=== PATIENT | female | born 1960 | race Caucasian/White ===

== ENCOUNTER → 2016-12-14 | Outpatient (CLI) | payer MEDICARE, BC ==
[~2016-12-14] MED LIST: CELE20TA PO; CHOL50006 PO; ESTR1 PO; FOLI1TAB PO; KLOR20TA6 PO; LEVO112T2 PO; LIOT25 PO; LOPE2TAB3 PO; PERC10TA27 PO; PERC5TAB12 PO; SLOWTAB PO
[2016-12-14 10:21] LABS: AUTOMATED NEUTROPHIL # 4.3 TH/MM3 (1.8-7.7); BASOPHIL # 0.1 TH/MM3 (0-0.2); BASOPHIL % 1.7 % (0.0-2.0); EOSINOPHIL # 0.6 TH/MM3 (0-0.4); HEMATOCRIT 37.6 % (35.0-46.0); HEMO FLAGS DIFF FINAL; LYMPH % 28.6 % (9.0-44.0); LYMPHOCYTE # 2.2 TH/MM3 (1.0-4.8); MEAN CELL VOLUME 89.2 FL (80.0-100.0); MEAN CORPUSCULAR HEMOGLOBIN 30.1 PG (27.0-34.0); MEAN CORPUSCULAR HGB CONC 33.8 % (32.0-36.0); MONO % 5.9 % (0.0-8.0); NEUT % 55.8 % (16.0-70.0); PLATELET COUNT 211 TH/MM3 (150-450); RED BLOOD COUNT 4.21 MIL/MM3 (4.00-5.30); RED CELL DISTRIBUTION WIDTH 13.4 % (11.6-17.2); WHITE BLOOD COUNT 7.7 TH/MM3 (4.0-11.0)
[2016-12-14 10:52] LABS: WESTERGREN SEDIMENTATION RATE 2 mm/hr (0-30)
[2016-12-14 10:56] LABS: ALT (GPT) 19 U/L (10-53); ANION GAP 7 MEQ/L (5-15); AST (GOT) 18 U/L (15-37); BICARBONATE 22.9 MEQ/L (21.0-32.0); BLOOD UREA NITROGEN 13 MG/DL (7-18); CHLORIDE 110 MEQ/L (98-107); GLOMERULAR FILTRATION RATE 53 ML/MIN (>89); GLUCOSE,FASTING 78 MG/DL (74-99); SODIUM (NA) 140 MEQ/L (136-145)
[2016-12-14 10:57] LABS: RHEUMATOID FACTOR TRIGGER LESS THAN 10.0 IU/ML (0.0-14.9)
[2016-12-14 11:05] LABS: ALKALINE PHOSPHATASE 100 U/L (45-117); TOTAL BILIRUBIN ADULT 0.4 MG/DL (0.2-1.0); URIC ACID 3.7 MG/DL (2.6-6.0)
[2016-12-14 11:14] LABS: CREATINE KINASE 49 U/L (26-192)
[2016-12-14 11:15] LABS: POTASSIUM 2.8 MEQ/L (3.5-5.1)
[2016-12-14 11:19] LABS: FREE T3 2.46 PG/ML (2.18-3.98); FREE T4 1.3 NG/DL (0.76-1.46)
[2016-12-16 11:51] LABS: RHEUMATOID FACTOR 7 IU/mL (<14)
[2016-12-16 15:53] LABS: MYELOPEROXIDASE LESS THAN 1.0 AI (<1.0); PROTEINASE-3 LESS THAN 1.0 AI (<1.0)
[2016-12-16 23:55] LABS: ANA IFA TITER ND titer (()); ANA SER QL NEGATIVE (NEGATIVE); SJOGRENS AB SSA <1.0 NEG AI (<1.0 NEGATIVE); SJOGRENS AB SSB <1.0 NEG AI (<1.0 NEGATIVE); THYROGLOB ABS 6 IU/mL (< OR = 1)
[2016-12-17 03:51] LABS: DS DNA AB(CRITHIDIA) NEGATIVE (NEGATIVE); DS DNA AB(CRITHIDIA)TITER ND (<1:10)
== END ==
LOC: CLAB 09:35
PROVIDERS: ATTEND Internal Medicine Endocrinology, Diabetes & Metabolism
DX: M07.60 Enteropathic arthropathies, unspecified site (principal); E06.3 Autoimmune thyroiditis; E03.9 Hypothyroidism, unspecified; I10 Essential (primary) hypertension
CPT/HCPCS: 36415; 80053; 82550; 82607; 82652; 83516; 84439; 84443; 84481; 84550; 85025; 85652; 86021; 86038; 86140; 86147; 86200; 86235; 86255; 86256; 86376; 86430; 86431; 86800

== ENCOUNTER 2017-03-02 12:21 | Emergency (ER) | payer MEDICARE, BC ==
[~2017-03-02] VITALS: Ht 157.5 cm; Wt 51.5 kg
[2017-03-02 12:24] VITALS: BP 128/87; PULSE 81; RESP 18; TEMP 98.7; O2SAT 97
[2017-03-02 16:40] VITALS: BP 140/81; PULSE 54; PULSE 57; RESP 16; O2SAT 100
--- NOTE | 2017-03-02 16:46 | PD ---
HPI Chief Complaint: Abnormal Results Time Seen by Provider: 16:32 Travel History International Travel<30 days: No Contact w/Intl Traveler<30days: No Traveled to known affect area: No History of Present Illness HPI Patient is a 51-year-old female presented to the emergency department for evaluation of a low potassium level. Patient states her primary care provider called her to let her know that her potassium level was low. Patient states she has a history of the same secondary to Crohn's disease and chronic diarrhea. Patient states that she has been dizzy and feeling off balance. She has no other complaints at this time. PFSH Past Medical History Arthritis: Yes (NECK) Asthma: Yes (MILD) Blood Disorders: No Anxiety: No Depression: Yes Heart Rhythm Problems: No Cancer: No Cardiovascular Problems: No Chemotherapy: No Chest Pain: No Congestive Heart Failure: No Diabetes: No Diminished Hearing: No Gastrointestinal Disorders: Yes (CROHN'S, GERD) GERD: Yes Genitourinary: No Hepatitis: No Hiatal Hernia: Yes Hypertension: No Implanted Vascular Access Dvce: No Musculoskeletal: Yes (degenerative disc disease) Neurologic: No Reproductive: No Immunizations Current: No Migraines: Yes Radiation Therapy: No Thyroid Disease: Yes (HYPOTHYROID) Menopausal: Yes Ectopic : Yes Past Surgical History Abdominal Surgery: Yes (APPENDECTOMY, BOWEL RESECT (X3)/ CHOLECYSTECTOMY, LYSIS ADHES.) AICD: No Appendectomy: Yes Body Medical Devices: LUMBAR HARDWARE, ADILENE. BREAST IMPLANTS Cholecystectomy: Yes Gynecologic Surgery: Yes (ECTOPIC PREG.) Hysterectomy: Yes (06/13/2015) Joint Replacement: No Neurologic Surgery: Yes (LUMBAR DISCECTOMY, LUMBAR FUSION) Pacemaker: No Other Surgery: Yes (LUMBAR FUSION APPEND.CHOLESTECTOMY COLON RESECTION TIMES 2 ADHESIONS) Social History Alcohol Use: Yes (RARE) Tobacco Use: No (quit 28 yrs ago) Substance Use: No Allergies-Medications (Allergen,Severity, Reaction): Coded Allergies: atropine (Unverified Allergy, Severe, TONGUE SWELLS, CAN'T BREATH, 02/23/17 ) PT STATES THAT ATROPINE WAS GIVEN WITH [place] DOES NOT BELIEVE THAT IS ALLERGIC TO ATROPINE cefepime (Unverified Allergy, Severe, TONGUE SWELLS, CAN'T BREATH, 02/23/17 ) ceftaroline fosamil (Unverified Allergy, Severe, TONGUE SWELLS, CAN'T BREATH, 02/23/17) nalbuphine (Unverified Allergy, Severe, Shortness of Breath, 02/23/17) Reported Meds & Prescriptions Reported Meds & Active Scripts Active Review of Systems Except as stated in HPI: all other systems reviewed are Neg HENT: No: Headaches Cardiovascular: No: Chest Pain or Discomfort Respiratory: No: Shortness of Breath Gastrointestinal: Positive: Nausea, No: Vomiting, Abdominal Pain Musculoskeletal: No: Myalgias Neurologic: Positive: Dizziness (occasionally), No: Weakness, Syncope, Change in Mentation Physical Exam Narrative GENERAL: Thin, well-developed, alert female. Resting comfortably in no acute distress. SKIN: Warm and dry. HEAD: Atraumatic. Normocephalic. EYES: Pupils equal and round. No scleral icterus. No injection or drainage. ENT: No nasal bleeding or discharge. Mucous membranes pink and moist. NECK: Trachea midline. No JVD. CARDIOVASCULAR: Regular rate and rhythm. RESPIRATORY: No accessory muscle use. Clear to auscultation. Breath sounds equal bilaterally. GASTROINTESTINAL: Abdomen soft, non-tender, nondistended. Hepatic and splenic margins not palpable. MUSCULOSKELETAL: Extremities without clubbing, cyanosis, or edema. No obvious deformities. NEUROLOGICAL: Awake and alert. No obvious cranial nerve deficits. Motor grossly within normal limits. Five out of 5 muscle strength in the arms and legs. Normal speech. PSYCHIATRIC: Appropriate mood and affect; insight and judgment normal. Data Data Last Documented VS Vital Signs Date Time Temp Pulse Resp B/P (MAP) Pulse Ox O2 Delivery O2 Flow Rate FiO2 03/02/17 16:40 57 16 140/81 (100) 100 Room Air 03/02/17 12:24 98.7 Orders Orders Comprehensive Metabolic Panel (03/02/17 16:37) Magnesium (Mg) (03/02/17 16:37) Electrocardiogram (03/02/17 ) Complete Blood Count With Diff (03/02/17 16:37) Iv Access Insert/Monitor (03/02/17 16:37) Ecg Monitoring (03/02/17 16:37) Oximetry (03/02/17 16:37) Vital Signs (03/02/17 16:37) Ondansetron Inj (Zofran Inj) (03/02/17 17:45) Potassium Chloride (Kcl) (03/02/17 18:30) Labs Laboratory Tests Test 03/02/17 16:50 White Blood Count 8.1 TH/MM3 Red Blood Count 4.24 MIL/MM3 Hemoglobin 12.8 GM/DL Hematocrit 39.4 % Mean Corpuscular Volume 92.9 FL Mean Corpuscular Hemoglobin 30.3 PG Mean Corpuscular Hemoglobin Concent 32.6 % Red Cell Distribution Width 13.5 % Platelet Count 221 TH/MM3 Mean Platelet Volume 8.3 FL Neutrophils (%) (Auto) 47.8 % Lymphocytes (%) (Auto) 30.0 % Monocytes (%) (Auto) 7.0 % Eosinophils (%) (Auto) 11.4 % Basophils (%) (Auto) 3.8 % Neutrophils # (Auto) 3.9 TH/MM3 Lymphocytes # (Auto) 2.4 TH/MM3 Monocytes # (Auto) 0.6 TH/MM3 Eosinophils # (Auto) 0.9 TH/MM3 Basophils # (Auto) 0.3 TH/MM3 CBC Comment DIFF FINAL Differential Comment Blood Urea Nitrogen 14 MG/DL Creatinine 1.22 MG/DL Random Glucose 79 MG/DL Total Protein 7.5 GM/DL Albumin 3.6 GM/DL Calcium Level 8.6 MG/DL Magnesium Level 1.6 MG/DL Alkaline Phosphatase 96 U/L Aspartate Amino Transf (AST/SGOT) 17 U/L Alanine Aminotransferase (ALT/SGPT) 19 U/L Total Bilirubin 0.3 MG/DL Sodium Level 139 MEQ/L Potassium Level 3.1 MEQ/L Chloride Level 105 MEQ/L Carbon Dioxide Level 23.5 MEQ/L Anion Gap 11 MEQ/L Estimat Glomerular Filtration Rate 46 ML/MIN [facility] Medical Decision Making Medical Screen Exam Complete: Yes Emergency Medical Condition: Yes Interpretation(s) Vital Signs Date Time Temp Pulse Resp B/P (MAP) Pulse Ox O2 Delivery O2 Flow Rate FiO2 03/02/17 16:40 100 Room Air 03/02/17 12:24 98.7 81 18 128/87 (101) 97 Room Air Differential Diagnosis Hypokalemia vs cardiac arrhythmia versus other Narrative Course Patient's 56-year-old female that presented to the emergency for evaluation of abnormal labs. Patient's vital signs are stable, she is well-appearing in no acute distress. Labs ordered and pending. EKG shows sinus bradycardia with a rate of 56. CBC is unremarkable, chemistry with a potassium of 3.1. Oral potassium replacement ordered. Patient will be discharged home, she was encouraged to eat foods high in potassium she is encouraged to return to emergency department any worsening symptoms or patient verbalized understanding of instructions. Patient stable for discharge. Diagnosis Primary Impression: Hypokalemia Referrals: Primary Care Physician 2 days Patient Instructions: General Instructions, Hypokalemia (ED), Potassium Content of Foods List (ED) Additional Instructions: Follow-up with your primary doctor Eat foods high in potassium Return to emergency department for any new or worsening symptoms Med/Other Pt SpecificInfo: Prescription(s) given Scripts Potassium Chloride ER (Potassium Chloride ER) 10 Meq Cap 10 MEQ PO DAILY for Electrolyte Replacement for 7 Days, #30 CAP 0 Refills Prov: Florinda Ledesma 03/02/17 Disposition: 01 DISCHARGE HOME Condition: Stable Florinda Ledesma Mar 02, 2017 16:46
[2017-03-02 17:28] LABS: AUTOMATED NEUTROPHIL # 3.9 TH/MM3 (1.8-7.7); BASOPHIL # 0.3 TH/MM3 (0-0.2); BASOPHIL % 3.8 % (0.0-2.0); EOSINOPHIL # 0.9 TH/MM3 (0-0.4); EOSINOPHIL % 11.4 % (0.0-4.0); HEMATOCRIT 39.4 % (35.0-46.0); HEMO FLAGS DIFF FINAL; LYMPHOCYTE # 2.4 TH/MM3 (1.0-4.8); MEAN CELL VOLUME 92.9 FL (80.0-100.0); MEAN CORPUSCULAR HEMOGLOBIN 30.3 PG (27.0-34.0); MEAN CORPUSCULAR HGB CONC 32.6 % (32.0-36.0); NEUT % 47.8 % (16.0-70.0); PLATELET COUNT 221 TH/MM3 (150-450); RED BLOOD COUNT 4.24 MIL/MM3 (4.00-5.30); RED CELL DISTRIBUTION WIDTH 13.5 % (11.6-17.2); WHITE BLOOD COUNT 8.1 TH/MM3 (4.0-11.0)
[2017-03-02 17:30] VITALS: BP 112/63; PULSE 75; RESP 16; O2SAT 100
[2017-03-02] MEDS ORDERED: ONDANSETRON HCL 4 MG/2 ML VIAL IV PUSH ONE (17:45)
[2017-03-02 17:53] LABS: ALKALINE PHOSPHATASE 96 U/L (45-117); TOTAL BILIRUBIN ADULT 0.3 MG/DL (0.2-1.0)
[2017-03-02 18:12] LABS: ALT (GPT) 19 U/L (10-53); ANION GAP 11 MEQ/L (5-15); AST (GOT) 17 U/L (15-37); BICARBONATE 23.5 MEQ/L (21.0-32.0); BLOOD UREA NITROGEN 14 MG/DL (7-18); CHLORIDE 105 MEQ/L (98-107); GLOMERULAR FILTRATION RATE 46 ML/MIN (>89); MAGNESIUM 1.6 MG/DL (1.5-2.5); POTASSIUM 3.1 MEQ/L (3.5-5.1); SODIUM (NA) 139 MEQ/L (136-145)
[2017-03-02] MEDS ORDERED: POTA10CA PO (18:29)
[2017-03-02] MEDS ORDERED: POTASSIUM CHLORIDE 10 MEQ CONTROLLED RELEASE TAB PO ONE (18:30)
[2017-03-02 18:53] VITALS: BP 128/65
--- NOTE | 2017-03-03 19:53 | EKG ---
Date Performed: 03/02/2017 Time Performed: 16:56:31 PTAGE: 56 years EKG: SINUS BRADYCARDIA BORDERLINE ECG PREVIOUS TRACING : 06/24/2015 01.44 Compared to the previous tracing rate slower DOCTOR: Moo Cox Interpretating Date/Time 03/03/2017 19:52:06
== END 2017-03-02 18:54 | disposition home or self-care (01) ==
LOC: NEPD 12:21
DX: E87.6 Hypokalemia (principal); E03.9 Hypothyroidism, unspecified; K21.9 Gastro-esophageal reflux disease without esophagitis; K50.90 Crohn's disease, unspecified, without complications
CPT/HCPCS: 80053; 83735; 85025; 93005; 96374; 99284; J2405

== ENCOUNTER → 2017-04-22 | Outpatient (CLI) | payer MEDICARE, BC ==
[~2017-04-22] MED LIST changes: -CELE20TA PO; -CHOL50006 PO; -ESTR1 PO; -FOLI1TAB PO; -KLOR20TA6 PO; -LEVO112T2 PO; -LIOT25 PO; -LOPE2TAB3 PO; -PERC10TA27 PO; -PERC5TAB12 PO; +POTA10CA PO; -SLOWTAB PO
[2017-04-22 11:49] LABS: FREE T3 3.08 PG/ML (2.18-3.98); FREE T4 1.35 NG/DL (0.76-1.46)
== END ==
LOC: CLAB 10:21
PROVIDERS: ATTEND Internal Medicine Endocrinology, Diabetes & Metabolism
DX: E03.9 Hypothyroidism, unspecified (principal); E55.9 Vitamin D deficiency, unspecified
CPT/HCPCS: 36415; 82306; 84439; 84443; 84481

== ENCOUNTER → 2017-10-25 | Outpatient (CLI) | payer MEDICARE, BC ==
[2017-10-25 10:19] LABS: BACTERIA, URINE RARE /hpf; BILIRUBIN, URINE NEG (NEG); BLOOD, URINE NEG (NEG); GLUCOSE,URINE NEG (NEG); KETONE, URINE NEG (NEG); NITRITE,URINE NEG (NEG); PH, URINE 5.5 (5.0-8.5); SQUAMOUS EPITHELIAL CELL URINE 8 /hpf (0-5); URINE COLOR YELLOW (YELLW/STRAW); URINE LEUKOCYTE ESTERASE LARGE (NEG)
[2017-10-25 10:20] LABS: AUTOMATED NEUTROPHIL # 5.6 TH/MM3 (1.8-7.7); BASOPHIL # 0.1 TH/MM3 (0-0.2); BASOPHIL % 1.4 % (0.0-2.0); EOSINOPHIL # 0.8 TH/MM3 (0-0.4); EOSINOPHIL % 8.7 % (0.0-4.0); HEMATOCRIT 37.6 % (35.0-46.0); HEMOGLOBIN 12.6 GM/DL (11.6-15.3); LYMPH % 19.7 % (9.0-44.0); LYMPHOCYTE # 1.7 TH/MM3 (1.0-4.8); MEAN CELL VOLUME 92.5 FL (80.0-100.0); MEAN CORPUSCULAR HEMOGLOBIN 30.9 PG (27.0-34.0); MEAN CORPUSCULAR HGB CONC 33.4 % (32.0-36.0); MEAN PLATELET VOLUME 8.2 FL (7.0-11.0); MONO % 6.1 % (0.0-8.0); MONOCYTE # 0.5 TH/MM3 (0-0.9); NEUT % 64.1 % (16.0-70.0); PLATELET COUNT 199 TH/MM3 (150-450); RED BLOOD COUNT 4.07 MIL/MM3 (4.00-5.30); RED CELL DISTRIBUTION WIDTH 12.6 % (11.6-17.2); WHITE BLOOD COUNT 8.7 TH/MM3 (4.0-11.0)
[2017-10-25 10:33] LABS: ALBUMIN 3.3 GM/DL (3.4-5.0); AST (GOT) 18 U/L (15-37); BICARBONATE 23.5 MEQ/L (21.0-32.0); BLOOD UREA NITROGEN 15 MG/DL (7-18); CALCIUM 8.4 MG/DL (8.5-10.1); CHLORIDE 108 MEQ/L (98-107); GLUCOSE,FASTING 85 MG/DL (74-99); SODIUM (NA) 139 MEQ/L (136-145)
[2017-10-25 10:34] LABS: CHOLESTEROL 175 MG/DL (120-200); CREATININE 1.32 MG/DL (0.50-1.00); GLOMERULAR FILTRATION RATE 42 ML/MIN (>89)
[2017-10-25 10:44] LABS: ALKALINE PHOSPHATASE 90 U/L (45-117); ALT (GPT) 19 U/L (10-53); CHOLESTEROL/ HDL RATIO 2.17 RATIO; HDL CHOLESTEROL 80.3 MG/DL (40.0-60.0); LDL CHOLESTEROL 81 MG/DL (0-99); TOTAL BILIRUBIN ADULT 0.2 MG/DL (0.2-1.0); TRIGLYCERIDES 70 MG/DL (42-150)
[2017-10-25 10:45] LABS: FREE T3 2.09 PG/ML (2.18-3.98); FREE T4 1.12 NG/DL (0.76-1.46)
== END ==
LOC: CLAB 09:43
PROVIDERS: ATTEND Internal Medicine Endocrinology, Diabetes & Metabolism
DX: E03.9 Hypothyroidism, unspecified (principal); R53.81 Other malaise; R53.83 Other fatigue; E55.9 Vitamin D deficiency, unspecified; Z13.0 Encounter for screening for diseases of the blood and blood-forming organs and certain disorders involving the immune mechanism; Z13.220 Encounter for screening for lipoid disorders
CPT/HCPCS: 36415; 80053; 80061; 81001; 82306; 84439; 84443; 84481; 85025; 86403; 87086